=== PATIENT | male | born 1980 | race Caucasian/White ===

== ENCOUNTER 2018-02-17 16:21 | Emergency (ER) | payer BC ==
[2018-02-17 17:00] VITALS: BP 144/79
[2018-02-17] MEDS ORDERED: Ketorolac INJ* 60 MG/2 ML VIAL IM ONE (17:17)
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
== END 2018-02-17 17:39 | disposition home or self-care (01) ==
LOC: UCCORT 16:21
DX: S39.012A Strain of muscle, fascia and tendon of lower back, initial encounter (principal); X58.XXXA Exposure to other specified factors, initial encounter; Y93.9 Activity, unspecified; Y92.9 Unspecified place or not applicable; M62.830 Muscle spasm of back; Z87.442 Personal history of urinary calculi; Z88.5 Allergy status to narcotic agent
CPT/HCPCS: 96372; 99212; G0463; J1885